=== PATIENT | male | born 1965 | race Hispanic/Latino ===

== ENCOUNTER 2022-11-06 05:16 | Emergency (ER) | payer OTHER ==
[~2022-11-06] VITALS: Ht 165.1 cm; Wt 69.4 kg
[2022-11-06 05:29] VITALS: BP 125/86; PULSE 86; RESP 18; O2SAT 98
[2022-11-06 05:48] LABS: SARS-CoV-2, RNA, NAAT POSITIVE SARS CoV-2 (NEGATIVE)
[2022-11-06 05:56] LABS: INFLUENZA TYPE A Negative For Type A (NEGATIVE); INFLUENZA TYPE B Negative For Type B (NEGATIVE)
[2022-11-06] MEDS ORDERED: ACETAMINOPHEN 325 MG TAB PO ONE (06:00)
== END 2022-11-06 06:19 | disposition home or self-care (01) ==
LOC: EDH 05:16
DX: U07.1 COVID-19 (principal); Z90.49 Acquired absence of other specified parts of digestive tract
CPT/HCPCS: 99283; 87635; 87804 ×2; C9803